=== PATIENT | female | born 1965 | race African-American/Black ===

== ENCOUNTER 2017-11-02 10:12 | Inpatient (IN) | payer OTHER ==
[~2017-11-02] VITALS: Ht 162.6 cm; Wt 84.5 kg
[~2017-11-02 10:12] MED LIST: AMLO10TA2 PO; AMLO5TAB2 PO; AMOX500C PO; ATEN25TA PO; ATEN50TA PO; BUDE10.2 IH; CHOL10003 PO; LISI1TAB5 PO; OMEG500C3 PO; POTA20TA12 PO; VITA400C36 PO
[2017-11-02] MEDS ORDERED: IV NORMAL SALINE 1000ML BAG 1,000 ML IV SCH (10:33)
--- NOTE | 2017-11-02 10:36 | EKG ---
[facility] [address] [place] [address] Test Date: 2017-11-02 Test Time: 10:20:48 Pat Name: ANATOLY HENSLEY Department: Room: Gender: F Dance Teacher: : 1965 Requested By: DAYTON PARR Order Number: [id number] Reading MD: Janak Poe MD Measurements Intervals [place] Rate: 63 P: 47 PA: 200 QRS: 23 QRSD: 80 T: 7 QT: 398 QTc: 410 Interpretive Statements SINUS RHYTHM Electronically Signed On 11-07-2017 14:32:39 [employer] TENDER by Janak Poe MD
[2017-11-02 10:45] LABS: BASO % 1 % (0-3); EOS % 1 % (0-3); HEMATOCRIT 37.1 % (36.0-47.0); HEMOGLOBIN 12.1 g/dL (12.0-15.5); LYMPH # 1.9 x10^3/uL (1.0-4.8); LYMPH % 25 % (24-48); MEAN CORPUSCULAR HEMOGLOBIN 28 pg (25-35); MEAN CORPUSCULAR HGB CONC 33 g/dL (31-37); MEAN CORPUSCULAR VOLUME 85 fL (79-100); MONO % 7 % (0-9); NEUT % 66 % (31-73); PLATELET COUNT 249 x10^3/uL (140-400); RED BLOOD COUNT 4.35 x10^6/uL (3.50-5.40); RED CELL DISTRIBUTION WIDTH 14.2 % (11.5-14.5); WHITE BLOOD COUNT 7.5 x10^3/uL (4.0-11.0)
[2017-11-02] MEDS ORDERED: ASPIRIN CHEWABLE 81 MG TABLET. PO ONE (10:45)
[2017-11-02] MEDS ORDERED: 0.9 % SODIUM CHLORIDE 10 ML DISP.SYRIN. IV PRN (10:45)
[2017-11-02 10:58] LABS: BILIRUBIN,URINE NEGATIVE (NEG); GLUCOSE,URINE NEGATIVE (NEG); NITRITE,URINE NEGATIVE (NEG); PH,URINE 7.5; PROTEIN,URINE NEGATIVE (NEG-TRACE); UROBILINOGEN,URINE 0.2 mg/dL (0.2 mg/dL)
[2017-11-02 11:05] LABS: ALBUMIN 3.6 g/dL (3.4-5.0); CALCIUM 9.2 mg/dL (8.5-10.1); CREATININE 0.8 mg/dL (0.6-1.0); DIRECT BILIRUBIN 0.1 mg/dL (0.0-0.2); GFR 90.8; TOTAL BILIRUBIN 0.4 mg/dL (0.2-1.0); TOTAL PROTEIN 7.7 g/dL (6.4-8.2)
[2017-11-02 11:11] LABS: POTASSIUM 2.9 mmol/L (3.5-5.1)
[2017-11-02 11:13] LABS: CKMB MASS < 0.5 ng/mL (0.0-3.6); CREATINE KINASE 73 U/L (26-192)
[2017-11-02 11:13] LABS: BACTERIA,URINE MODERATE /HPF (0-FEW); RBC,URINE 0 /HPF (0-2); SQUAMOUS EPITHELIAL CELL,UR MANY /LPF; WBC,URINE OCC /HPF (0-4)
--- NOTE | 2017-11-02 11:17 | RAD ---
Portable chest, 11/02/2017: History: Chest pain Comparison is made to a study from 11/29/2004. The heart is at the upper limits of normal in size. The pulmonary vascularity is normal. There are mild bibasilar linear opacities suggesting atelectasis and/or scarring. No pleural fluid is evident. IMPRESSION: Mild bibasilar linear atelectasis and/or scarring.
[2017-11-02] MEDS ORDERED: fentaNYL PF VIAL 100 MCG/2 ML VIAL IV PRN (11:30)
[2017-11-02] MEDS ORDERED: ONDANSETRON PF 4 MG/2 ML VIAL. IV PRN (11:30)
[2017-11-02] MEDS: POTASSIUM CITRATE 10 MEQ TABLET.ER PO SCH ×2 (11:42→19:50)
--- NOTE | 2017-11-02 11:43 | PHYS DOC ---
Past Medical History Past Medical History: Hypertension Past Surgical History: Cholecystectomy Alcohol Use: Occasionally Drug Use: None Adult General Chief Complaint Chief Complaint: CHEST PAIN [facility] HPI Patient is a pleasant 52-year-old -Cypriot female with history of hypertension presents with chest pain that awoke her from sleep at about 3 clock this morning. Patient was in her normal state of health when she was sleeping at night and awoke with chest pressure reading from her left breast to Center for chest has been waxing and waning. She noted that the chest pain is worse with exertion and deep breaths. She is not had any like this in the past. She denies any swelling her lower legs or weight gain, denies any cough, URI symptoms or problems with wheezing. Patient denies any travel outside the country or antibiotic use. The pain is described as a pressure with no radiation to the jaw, shoulder, arm or back. She denies any trauma or night sweats. Patient's pain was not improved with accommodation of baking soda and vinegar. She felt that she could burp she would feel better she also describes decreased exercise tolerance and possible sleep apnea. 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 She is looking for other ways to make money and this is causing increased stress in her household. Patient denies any significant family history patient's chest pain at this time is a moderate 6 of 10 Differential diagnosis for chest pain: Pericarditis, myocarditis, endocarditis, pneumothorax, pneumonia, aortic dissection, esophageal spasm, esophagitis, peptic ulcer disease, acute coronary syndrome, mediastinitis, Boerhaave syndrome , musculoskeletal chest wall pain, costochondritis, intercostal strain, rib fracture, pulmonary contusion, pneumonitis, pleural effusion, pericardial effusion, pericardial tamponode, and pleurisy. Review of Systems Review of Systems Constitutional: Denies fever or chills [] Eyes: Denies change in visual acuity, redness, or eye pain [] HENT: Denies nasal congestion or sore throat [] Respiratory: Denies cough patient does have some shortness of breath with her symptoms. Cardiovascular: No additional information not addressed in HPI [] GI: Denies abdominal pain, nausea, vomiting, bloody stools or diarrhea [patient does describe some intermittent constipation for which she uses MiraLAX to treat her symptoms.] : Denies dysuria or hematuria [] Musculoskeletal: Denies back pain or joint pain [] Integument: Denies rash or skin lesions [] Neurologic: Denies headache, focal weakness or sensory changes patient did have a slight episode of paresthesias and numbness to the fourth toe on the right foot several days ago that resolved [] Endocrine: Denies polyuria or polydipsia [] All other systems were reviewed and found to be within normal limits, except as documented in this note. Current Medications Current Medications Current Medications Medications (Trade) Dose Ordered Sig/Edi Start Time Stop Time Status Last Admin Dose Admin Aspirin (Children'S Aspirin) 324 mg 1X ONCE 11/02/17 10:45 11/02/17 10:46 DC Sodium Chloride (Normal Saline Flush) 10 ml QSHIFT PRN 11/02/17 10:45 Allergies Allergies Allergies Coded Allergies Type Severity Reaction Last Updated Verified No Known Drug Allergies 02/12/15 No Physical Exam Physical Exam Upon arrival vital signs recorded on this patient's chart demonstrate hypertension. No tachycardia and no tachypnea nor hypoxia Constitutional: Well developed, well nourished, no acute distress, non-toxic appearance. Patient is obese[] HENT: Normocephalic, atraumatic, bilateral external ears normal, oropharynx moist, no oral exudates, nose normal. [] Eyes: PERRLA, EOMI, conjunctiva normal, no discharge. [] Neck: Normal range of motion, no tenderness, supple, no stridor. [] Cardiovascular:Heart rate regular rhythm, no murmur patient has no clear chest wall tenderness to palpation. [] Lungs & Thorax: Bilateral breath sounds clear to auscultation she has no wheezes rhonchi rales or crackles. [] Abdomen: Bowel sounds normal, soft, no tenderness, no masses, no pulsatile masses. [] Skin: Warm, dry, no erythema, no rash. [] Extremities: No tenderness, no cyanosis, no clubbing, ROM intact, no edema. [] Neurologic: Alert and oriented X 3, normal motor function, normal sensory function, no focal deficits noted. [] Psychologic: Affect normal, judgement normal, mood normal. [] Current Patient Data Vital Signs Vital Signs Date Time Temp Pulse Resp B/P (MAP) Pulse Ox O2 Delivery O2 Flow Rate FiO2 11/02/17 10:15 98.3 61 20 163/73 (103) 96 Room Air 98.3 Lab Values Laboratory Tests Test 11/02/17 10:25 11/02/17 10:43 White Blood Count 7.5 x10^3/uL (4.0-11.0) Red Blood Count 4.35 x10^6/uL (3.50-5.40) Hemoglobin 12.1 g/dL (12.0-15.5) Hematocrit 37.1 % (36.0-47.0) Mean Corpuscular Volume 85 fL (79-100) Mean Corpuscular Hemoglobin 28 pg (25-35) Mean Corpuscular Hemoglobin Concent 33 g/dL (31-37) Red Cell Distribution Width 14.2 % (11.5-14.5) Platelet Count 249 x10^3/uL (140-400) Neutrophils (%) (Auto) 66 % (31-73) Lymphocytes (%) (Auto) 25 % (24-48) Monocytes (%) (Auto) 7 % (0-9) Eosinophils (%) (Auto) 1 % (0-3) Basophils (%) (Auto) 1 % (0-3) Neutrophils # (Auto) 5.0 x10^3uL (1.8-7.7) Lymphocytes # (Auto) 1.9 x10^3/uL (1.0-4.8) Monocytes # (Auto) 0.5 x10^3/uL (0.0-1.1) Eosinophils # (Auto) 0.1 x10^3/uL (0.0-0.7) Basophils # (Auto) 0.0 x10^3/uL (0.0-0.2) D-Dimer (Tyra) 0.30 ug/mlFEU (0.00-0.50) Sodium Level 141 mmol/L (136-145) Potassium Level 2.9 mmol/L (3.5-5.1) *L Chloride Level 102 mmol/L (98-107) Carbon Dioxide Level 33 mmol/L (21-32) H Anion Gap 6 (6-14) Blood Urea Nitrogen 10 mg/dL (7-20) Creatinine 0.8 mg/dL (0.6-1.0) Estimated GFR (Cockcroft-Gault) 90.8 Glucose Level 97 mg/dL (70-99) Calcium Level 9.2 mg/dL (8.5-10.1) Magnesium Level 2.0 mg/dL (1.8-2.4) Total Bilirubin 0.4 mg/dL (0.2-1.0) Direct Bilirubin 0.1 mg/dL (0.0-0.2) Aspartate Amino Transferase (AST) 17 U/L (15-37) Alanine Aminotransferase (ALT) 19 U/L (14-59) Alkaline Phosphatase 73 U/L (46-116) Creatine Kinase 73 U/L (26-192) Creatine Kinase MB (Mass) < 0.5 ng/mL (0.0-3.6) Creatine Kinase MB Relative Index % (0-4) Troponin I Quantitative < 0.017 ng/mL (0.000-0.055) VH-Gpj-X-Type Natriuretic Peptide 112 pg/mL (0-124) Total Protein 7.7 g/dL (6.4-8.2) Albumin 3.6 g/dL (3.4-5.0) Lipase 99 U/L (73-393) Urine Collection Type Unknown Urine Color Yellow Urine Clarity Clear Urine pH 7.5 Urine Specific [place] 1.010 Urine Protein Negative mg/dL (NEG-TRACE) Urine Glucose (UA) Negative mg/dL (NEG) Urine Ketones (Stick) Negative mg/dL (NEG) Urine Blood Negative (NEG) Urine Nitrite Negative (NEG) Urine Bilirubin Negative (NEG) Urine Urobilinogen Dipstick 0.2 mg/dL (0.2 mg/dL) Urine Leukocyte Esterase Trace (NEG) Urine RBC 0 /HPF (0-2) Urine WBC Occ /HPF (0-4) Urine Squamous Epithelial Cells Many /LPF Urine Bacteria Moderate /HPF (0-FEW) Laboratory Tests 11/02/17 10:25 Laboratory Tests 11/02/17 10:25 EKG EKG []Initially her EKG upon arrival demonstrates a heart rate of 63, is been read by me time on EKG was 10:20 AM 11/02/2017 the EKG demonstrated P wave there were QRS this is normal sinus rhythm with a AZ interval 200 which is first- degree AV block ASIS QRS width is 80 which is normal, QTc is 410 which is normal. Besides having a first-degree AV block patient's EKG is otherwise normal Radiology/Procedures Radiology/Procedures [] [facility] [address] [place] [address] IMAGING REPORT Signed PATIENT: ANATOLY HENSLEY ACCOUNT: [id number] : 1965 LOCATION: ER AGE: 52 SEX: F EXAM STATUS: REG ER ORD. PHYSICIAN: DAYTON PARR MD REASON: chest pain PROCEDURE: PORTABLE CHEST 1V Portable chest, 11/02/2017: History: Chest pain Comparison is made to a study from 11/29/2004. The heart is at the upper limits of normal in size. The pulmonary vascularity is normal. There are mild bibasilar linear opacities suggesting atelectasis and/or scarring. No pleural fluid is evident. IMPRESSION: Mild bibasilar linear atelectasis and/or scarring. DICTATED and SIGNED BY: JULIAN BARAHONA MD DATE: 11/02/17 111 CC: DAYTON PARR MD; BINTA QUINTANA MD ~ Course & Med Decision Making Course & Med Decision Making Pertinent Labs and Imaging studies reviewed. (See chart for details) []She presented with chest pain of unclear etiology upon arrival. It only began about 3-6 hours prior to arrival and she's never had this symptom before. There is some remote discussion by her primary care doctor that she needs to be evaluated for possible sleep apnea and possibly set up for a stress test. She does also admit during the history that she is been going through perimenopausal symptoms. Initially her EKG upon arrival demonstrates a heart rate of 63, is been read by me time on EKG was 10:20 AM 11/02/2017 the EKG demonstrated P wave there were QRS this is normal sinus rhythm with a AZ interval 200 which is first-degree AV block ASIS QRS width is 80 which is normal , QTc is 410 which is normal. Besides having a first-degree AV block patient's EKG is otherwise normal Differential diagnosis for chest pain: Pericarditis, myocarditis, endocarditis, pneumothorax, pneumonia, aortic dissection, esophageal spasm, esophagitis, peptic ulcer disease, acute coronary syndrome, mediastinitis, Boerhaave syndrome , musculoskeletal chest wall pain, costochondritis, intercostal strain, rib fracture, pulmonary contusion, pneumonitis, pleural effusion, pericardial effusion, pericardial tamponode, and pleurisy. Was considered upon the patient' s arrival given her new symptoms despite having a negative EKG, negative troponin, negative d-dimer and negative BNP patient would benefit from a very low close follow-up if not admission to the hospital. History: Based on patient's heart score of age and risk factors she has a score of 2 based on her lack of follow-up we discussed admission to complete a stress test and sleep apnea study given her concern. Highly suspicious 2 points moderately suspicious 1. slightly suspicious 0 point EKG: ST segment depression 2. nonspecific repolarization disturbance 1. normal 0 point Age: Greater than 65 2 points, 65-45 1., less than 45 years old 0 points Risk factors:> 3 risk factors 2 points, 1-2 risk factors one point, no risk factors 0 point Troponin: > 2 times normal 2 points, 1-2 times normal 1., normal limits 0 point Total score: Score % pts MACE/n MACE Policy 0-3 32% 1.9% 0.05% Discharge 4-6 51% 413/3136 13% 1.3% Observation Risk management 7-10 17% 518/1045 50% 2.8% Observation Treatment, [facility] [employer] Supervisor note: [facility]. [facility] [employer] Supervisor called at of the service primary care doctor called at approximately 11:30 AM Consult called back at Discussed the case I presented and they agreed with admission. Time of acceptance 11:31 AM Dragon Disclaimer Dragon Disclaimer This electronic medical record was generated, in whole or in part, using a voice recognition dictation system. Departure Departure Impression: Primary Impression: Chest pain Additional Impression: Dyspnea Disposition: 09 ADMITTED INPATIENT Admitting Physician: Binta Quintana Condition: GUARDED Referrals: BINTA QUINTANA MD (PCP) Problem Qualifiers DAYTON PARR MD Nov 02, 2017 11:43
[2017-11-02 13:27] VITALS: BP 139/68
[2017-11-02 13:28] VITALS: BP 139/68
[2017-11-02] MEDS: IV NORMAL SALINE 1000ML BAG 1,000 ML IV SCH ×2 (13:30→19:50)
[2017-11-02] MEDS ORDERED: POTASSIUM CHLORIDE 20 MEQ TABLET.ER. PO SCH (14:00)
[2017-11-02] MEDS: amLODIPine BESYLATE 5 MG TABLET PO SCH (14:00)
[2017-11-02] MEDS ORDERED: ATENOLOL 50 MG TABLET. PO SCH ×2 (14:00→21:00)
[2017-11-02] MEDS: LISINOPRIL 20 MG TABLET PO SCH (14:00)
[2017-11-02 14:40] VITALS: BP 142/49
[2017-11-02] MEDS ORDERED: POTASSIUM CHLORIDE 20 MEQ TABLET.ER. PO ONE (15:00)
--- NOTE | 2017-11-02 15:09 | PDOC2 ---
CARDIAC CONSULT DATE OF CONSULT Date of Consult DATE: 11/02/17 TIME: 14:47 REASON FOR CONSULT Reason for Consult: Chest pain REFERRING PHYSICIAN Referring Physician: Letty SOURCE Source: Chart review, Patient HISTORY OF PRESENT ILLNESS HISTORY OF PRESENT ILLNESS This is a pleasant 52 yo female admitted for complains of chest pain. Pt reports that she has been coughing more often in the middle of the night. Also positive for PND, and daytime sleepiness even doing it at work. She has been noted with gaps between respiration with her last sleepo study about 10 yrs ago. Reports no exertional CP, BLACKMON, palpitations. No n/v or diarrhea, recent long distance travel, heavy lifting, or falls. She woke up this morning and felt lower sternal pressure that went up and hurts more with deep breath. Much better currently. No sensation of heartburn. No associated nausea, diaphoresis , nor SOA at that time. She took vinegar and soda to help her belch but this did not relieve her symptom. She is currently menopausal and not on any HRT. PAST MEDICAL HISTORY Cardiovascular: HTN Pulmonary: Asthma GI: Diverticulosis Musculoskeletal: Osteoarthritis (left shoulder) Rheumatologic: No pertinent hx Infectious disease: No pertinent hx ENT: No pertinent hx Renal/: No pertinent hx Endocrine: No pertinent hx Dermatology: No pertinent hx PAST SURGICAL HISTORY Past Surgical History: Cholecystectomy FAMILY HISTORY Family History: Other (aneurysm mother at 70s) SOCIAL HISTORY Smoke: No ALCOHOL: none Drugs: None Lives: Alone CURRENT MEDICATIONS CURRENT MEDICATIONS Current Medications Medications (Trade) Dose Ordered Sig/Edi Route PRN Reason Start Time Stop Time Status Last Admin Dose Admin Sodium Chloride 1,000 ml @ 1,000 mls/hr Q1H IV 11/02/17 10:33 11/02/17 11:32 DC 11/02/17 10:42 Sodium Chloride 1,000 ml @ 125 mls/hr Q8H IV 11/02/17 11:30 11/03/17 11:29 11/02/17 13:30 Potassium Citrate (Urocit-K) 10 meq BID PO 11/02/17 12:00 11/02/17 11:42 ALLERGIES ALLERGIES: Coded Allergies: No Known Drug Allergies (Unverified , 02/12/15) ROS Review of System 14 point ROS evaluated with pertinent positives noted per HPI PHYSICAL EXAM General: Alert, Oriented X3, Cooperative, No acute distress HEENT: Atraumatic, Mucous membr. moist/pink Lungs: Clear to auscultation, Normal air movement Heart: Regular rate (SR), Normal S1, Normal S2, No murmurs Abdomen: Soft, No tenderness Extremities: No cyanosis, No edema Skin: No breakdown, No significant lesion Neuro: Normal speech, Sensation intact Psych/Mental Status: Mental status NL, Mood NL MUSCULOSKELETAL: Osteoarthritic changes both hands VITALS VITALS Vital Signs Date Time Temp Pulse Resp B/P (MAP) Pulse Ox O2 Delivery O2 Flow Rate FiO2 11/02/17 14:40 97.6 66 18 142/49 (80) 98 Room Air 97.6 LABS Lab: Laboratory Tests Test 11/02/17 10:25 11/02/17 10:43 White Blood Count 7.5 x10^3/uL (4.0-11.0) Red Blood Count 4.35 x10^6/uL (3.50-5.40) Hemoglobin 12.1 g/dL (12.0-15.5) Hematocrit 37.1 % (36.0-47.0) Mean Corpuscular Volume 85 fL (79-100) Mean Corpuscular Hemoglobin 28 pg (25-35) Mean Corpuscular Hemoglobin Concent 33 g/dL (31-37) Red Cell Distribution Width 14.2 % (11.5-14.5) Platelet Count 249 x10^3/uL (140-400) Neutrophils (%) (Auto) 66 % (31-73) Lymphocytes (%) (Auto) 25 % (24-48) Monocytes (%) (Auto) 7 % (0-9) Eosinophils (%) (Auto) 1 % (0-3) Basophils (%) (Auto) 1 % (0-3) Neutrophils # (Auto) 5.0 x10^3uL (1.8-7.7) Lymphocytes # (Auto) 1.9 x10^3/uL (1.0-4.8) Monocytes # (Auto) 0.5 x10^3/uL (0.0-1.1) Eosinophils # (Auto) 0.1 x10^3/uL (0.0-0.7) Basophils # (Auto) 0.0 x10^3/uL (0.0-0.2) D-Dimer (Tyra) 0.30 ug/mlFEU (0.00-0.50) Sodium Level 141 mmol/L (136-145) Potassium Level 2.9 mmol/L (3.5-5.1) Chloride Level 102 mmol/L (98-107) Carbon Dioxide Level 33 mmol/L (21-32) Anion Gap 6 (6-14) Blood Urea Nitrogen 10 mg/dL (7-20) Creatinine 0.8 mg/dL (0.6-1.0) Estimated GFR (Cockcroft-Gault) 90.8 Glucose Level 97 mg/dL (70-99) Calcium Level 9.2 mg/dL (8.5-10.1) Magnesium Level 2.0 mg/dL (1.8-2.4) Total Bilirubin 0.4 mg/dL (0.2-1.0) Direct Bilirubin 0.1 mg/dL (0.0-0.2) Aspartate Amino Transf (AST/SGOT) 17 U/L (15-37) Alanine Aminotransferase (ALT/SGPT) 19 U/L (14-59) Alkaline Phosphatase 73 U/L (46-116) Creatine Kinase 73 U/L (26-192) Creatine Kinase MB (Mass) < 0.5 ng/mL (0.0-3.6) Creatine Kinase MB Relative Index % (0-4) Troponin I Quantitative < 0.017 ng/mL (0.000-0.055) ZV-Irj-A-Type Natriuretic Peptide 112 pg/mL (0-124) Total Protein 7.7 g/dL (6.4-8.2) Albumin 3.6 g/dL (3.4-5.0) Lipase 99 U/L (73-393) Thyroid Stimulating Hormone (TSH) 1.110 uIU/mL (0.358-3.74) Urine Collection Type Unknown Urine Color Yellow Urine Clarity Clear Urine pH 7.5 Urine Specific [place] 1.010 Urine Protein Negative mg/dL (NEG-TRACE) Urine Glucose (UA) Negative mg/dL (NEG) Urine Ketones (Stick) Negative mg/dL (NEG) Urine Blood Negative (NEG) Urine Nitrite Negative (NEG) Urine Bilirubin Negative (NEG) Urine Urobilinogen Dipstick 0.2 mg/dL (0.2 mg/dL) Urine Leukocyte Esterase Trace (NEG) Urine RBC 0 /HPF (0-2) Urine WBC Occ /HPF (0-4) Urine Squamous Epithelial Cells Many /LPF Urine Bacteria Moderate /HPF (0-FEW) ASSESSMENT/PLAN ASSESSMENT/PLAN 1. Atypical chest pain: suspect GI 2. HTN: controlled 3. ISA: will need outpt sleep study 4. Hypokalemia Recommendations 1. Continue home BP meds 2. Lipid panel. Stress echo tomorrow. 3. Start on PPI. Ashnati Leonard Problems: MELONIE RODRIGUEZ APRN Nov 02, 2017 15:09
[2017-11-02 15:28] LABS: CHOLESTEROL/HDL RATIO 2.8
[2017-11-02] MEDS: PANTOPRAZOLE 40 MG TABLET.DR. PO SCH (16:44)
[2017-11-02 19:15] VITALS: BP 152/71
[2017-11-02 23:15] VITALS: BP 144/74
[2017-11-03 03:15] VITALS: BP 133/63
[2017-11-03] MEDS: IV NORMAL SALINE 1000ML BAG 1,000 ML IV SCH (04:02)
[2017-11-03] MEDS: PANTOPRAZOLE 40 MG TABLET.DR. PO SCH (05:29)
[2017-11-03 06:05] LABS: CALCIUM 9.1 mg/dL (8.5-10.1); CREATININE 0.7 mg/dL (0.6-1.0); GFR 105.9; MAGNESIUM 2.1 mg/dL (1.8-2.4); POTASSIUM 3.1 mmol/L (3.5-5.1)
[2017-11-03 07:00] VITALS: BP 117/66
--- NOTE | 2017-11-03 09:18 | PDOC1 ---
History and Physical Date of Admission Date of Admission 10/03/17 Identification/Chief Complaint Chief Complaint chest pain Problems: Source Source: Chart review, Patient History of Present Illness History of Present Illness Patient is a pleasant 52-year-old -British female with history of hypertension presents with chest pain that awoke her from sleep at about 3 clock the morning of presentation. Patient was in her normal state of health when she was sleeping at night and awoke with chest pressure radiating from her left breast to Center for chest has been waxing and waning and increase with deep breathing. She noted that the chest pain is worse with exertion and deep breaths. She has not had any like this in the past. She denies any swelling her lower legs or weight gain, denies any cough, URI symptoms or problems with wheezing. Patient denies any travel outside the country or antibiotic use. The pain is described as a pressure and sharp with deep breathe . She denies any trauma or night sweats. Patient's pain was not improved with accommodation of baking soda and vinegar. She felt that she could burp she would feel better she also describes decreased exercise tolerance and possible sleep apnea. 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 She is looking for other ways to make money and this is causing increased stress in her household. Patient denies any significant family history Past Medical History Cardiovascular: HTN Pulmonary: Asthma GI: Diverticulosis Heme/Onc: Anemia NOS Hepatobiliary: No pertinent hx Psych: No pertinent hx Rheumatologic: No pertinent hx Infectious disease: No pertinent hx ENT: No pertinent hx Renal/: No pertinent hx Endocrine: No pertinent hx Dermatology: No pertinent hx Past Surgical History Past Surgical History: Cholecystectomy Family History Family History: Hypertension, Other (aneurysm mother at 70s) Social History Smoke: No ALCOHOL: none Drugs: None Current Problem List Problem List Problems Medical Problems: (1) Chest pain Status: Acute (2) Dyspnea Status: Acute Current Medications Current Medications Current Medications Medications (Trade) Dose Ordered Sig/Edi Start Time Stop Time Status Last Admin Dose Admin Amlodipine Besylate (Norvasc) 5 mg DAILY 11/02/17 14:00 Aspirin (Children'S Aspirin) 324 mg 1X ONCE 11/02/17 10:45 11/02/17 10:46 DC Atenolol (Tenormin) 50 mg QHS 12/14/17 21:00 11/02/17 19:51 50 MG Fentanyl Citrate (Fentanyl 2ml Vial) 50 mcg PRN Q1HR PRN 11/02/17 11:30 11/03/17 11:29 Lisinopril (Prinivil) 20 mg DAILY 11/02/17 14:00 Ondansetron HCl (Zofran) 4 mg PRN Q8HRS PRN 11/02/17 11:30 11/03/17 11:29 Pantoprazole Sodium (Protonix) 40 mg DAILYAC 11/02/17 16:30 11/02/17 16:44 40 MG Potassium Chloride (Klor-Con) 40 meq 1X ONCE 11/02/17 15:00 11/02/17 15:06 DC 11/02/17 16:44 40 MEQ Potassium Citrate (Urocit-K) 10 meq BID 11/02/17 12:00 11/02/17 19:50 10 MEQ Sodium Chloride 1,000 ml @ 125 mls/hr Q8H 11/02/17 11:30 11/03/17 11:29 11/03/17 04:02 125 MLS/HR Sodium Chloride (Normal Saline Flush) 10 ml QSHIFT PRN 11/02/17 10:45 Allergies Allergies Allergies Coded Allergies Type Severity Reaction Last Updated Verified No Known Drug Allergies 02/12/15 No ROS Review of System CONSTITUTIONAL: No fever or chills EYES: No recent changes SKIN: No rash or itching CARDIOVASCULAR: see HPI, NO syncope, palpitations, or edema RESPIRATORY: No SOB or cough GASTROINTESTINAL: No nausea, vomiting or abdominal pain NEUROLOGICAL: No headaches or weakness ENDOCRINE: No cold or heat intolerance GENITOURINARY: No urgency or frequency of urination MUSCULOSKELETAL: No back pain or joint pain LYMPHATICS: No enlarged lymph nodes PSYCHIATRIC: + anxiety and ma be depression Physical Exam Physical Exam GEN.: No apparent distress. Alert and oriented. HEENT: Head is normocephalic, atraumatic NECK: Supple. LUNGS: Clear to auscultation. HEART: RRR, S1, S2 present. Peripheral pulses intact ABDOMEN: Soft, nontender. Positive bowel sounds. EXTREMITIES: Without any cyanosis. NEUROLOGIC: Normal speech, normal tone PSYCHIATRIC: Normal affect, normal mood. SKIN: No ulcerations Vitals Vitals Vital Signs Date Time Temp Pulse Resp B/P (MAP) Pulse Ox O2 Delivery O2 Flow Rate FiO2 11/03/17 08:00 Room Air 11/03/17 07:00 98.1 71 16 117/66 (83) 97 98.1 Labs Labs Laboratory Tests Test 11/02/17 10:25 11/02/17 10:43 11/02/17 17:45 11/02/17 23:20 White Blood Count 7.5 x10^3/uL (4.0-11.0) Red Blood Count 4.35 x10^6/uL (3.50-5.40) Hemoglobin 12.1 g/dL (12.0-15.5) Hematocrit 37.1 % (36.0-47.0) Mean Corpuscular Volume 85 fL (79-100) Mean Corpuscular Hemoglobin 28 pg (25-35) Mean Corpuscular Hemoglobin Concent 33 g/dL (31-37) Red Cell Distribution Width 14.2 % (11.5-14.5) Platelet Count 249 x10^3/uL (140-400) Neutrophils (%) (Auto) 66 % (31-73) Lymphocytes (%) (Auto) 25 % (24-48) Monocytes (%) (Auto) 7 % (0-9) Eosinophils (%) (Auto) 1 % (0-3) Basophils (%) (Auto) 1 % (0-3) Neutrophils # (Auto) 5.0 x10^3uL (1.8-7.7) Lymphocytes # (Auto) 1.9 x10^3/uL (1.0-4.8) Monocytes # (Auto) 0.5 x10^3/uL (0.0-1.1) Eosinophils # (Auto) 0.1 x10^3/uL (0.0-0.7) Basophils # (Auto) 0.0 x10^3/uL (0.0-0.2) D-Dimer (Tyra) 0.30 ug/mlFEU (0.00-0.50) Sodium Level 141 mmol/L (136-145) Potassium Level 2.9 mmol/L (3.5-5.1) Chloride Level 102 mmol/L (98-107) Carbon Dioxide Level 33 mmol/L (21-32) Anion Gap 6 (6-14) Blood Urea Nitrogen 10 mg/dL (7-20) Creatinine 0.8 mg/dL (0.6-1.0) Estimated GFR (Cockcroft-Gault) 90.8 Glucose Level 97 mg/dL (70-99) Calcium Level 9.2 mg/dL (8.5-10.1) Magnesium Level 2.0 mg/dL (1.8-2.4) Total Bilirubin 0.4 mg/dL (0.2-1.0) Direct Bilirubin 0.1 mg/dL (0.0-0.2) Aspartate Amino Transf (AST/SGOT) 17 U/L (15-37) Alanine Aminotransferase (ALT/SGPT) 19 U/L (14-59) Alkaline Phosphatase 73 U/L (46-116) Creatine Kinase 73 U/L (26-192) Creatine Kinase MB (Mass) < 0.5 ng/mL (0.0-3.6) Creatine Kinase MB Relative Index % (0-4) Troponin I Quantitative < 0.017 ng/mL (0.000-0.055) < 0.017 ng/mL (0.000-0.055) < 0.017 ng/mL (0.000-0.055) KX-Ckw-N-Type Natriuretic Peptide 112 pg/mL (0-124) Total Protein 7.7 g/dL (6.4-8.2) Albumin 3.6 g/dL (3.4-5.0) Triglycerides Level 57 mg/dL (0-150) Cholesterol Level 223 mg/dL (0-200) LDL Cholesterol, Calculated 132 mg/dL (0-100) VLDL Cholesterol, Calculated 11 mg/dL (0-40) Non-HDL Cholesterol Calculated 143 mg/dL (0-129) HDL Cholesterol 80 mg/dL (40-60) Cholesterol/HDL Ratio 2.8 Lipase 99 U/L (73-393) Thyroid Stimulating Hormone (TSH) 1.110 uIU/mL (0.358-3.74) Urine Collection Type Unknown Urine Color Yellow Urine Clarity Clear Urine pH 7.5 Urine Specific [place] 1.010 Urine Protein Negative mg/dL (NEG-TRACE) Urine Glucose (UA) Negative mg/dL (NEG) Urine Ketones (Stick) Negative mg/dL (NEG) Urine Blood Negative (NEG) Urine Nitrite Negative (NEG) Urine Bilirubin Negative (NEG) Urine Urobilinogen Dipstick 0.2 mg/dL (0.2 mg/dL) Urine Leukocyte Esterase Trace (NEG) Urine RBC 0 /HPF (0-2) Urine WBC Occ /HPF (0-4) Urine Squamous Epithelial Cells Many /LPF Urine Bacteria Moderate /HPF (0-FEW) Test 11/03/17 05:15 Sodium Level 142 mmol/L (136-145) Potassium Level 3.1 mmol/L (3.5-5.1) Chloride Level 102 mmol/L (98-107) Carbon Dioxide Level 30 mmol/L (21-32) Anion Gap 10 (6-14) Blood Urea Nitrogen 8 mg/dL (7-20) Creatinine 0.7 mg/dL (0.6-1.0) Estimated GFR (Cockcroft-Gault) 105.9 Glucose Level 51 mg/dL (70-99) Calcium Level 9.1 mg/dL (8.5-10.1) Magnesium Level 2.1 mg/dL (1.8-2.4) Laboratory Tests Test 11/02/17 10:25 11/02/17 10:43 11/02/17 17:45 11/02/17 23:20 White Blood Count 7.5 x10^3/uL (4.0-11.0) Red Blood Count 4.35 x10^6/uL (3.50-5.40) Hemoglobin 12.1 g/dL (12.0-15.5) Hematocrit 37.1 % (36.0-47.0) Mean Corpuscular Volume 85 fL (79-100) Mean Corpuscular Hemoglobin 28 pg (25-35) Mean Corpuscular Hemoglobin Concent 33 g/dL (31-37) Red Cell Distribution Width 14.2 % (11.5-14.5) Platelet Count 249 x10^3/uL (140-400) Neutrophils (%) (Auto) 66 % (31-73) Lymphocytes (%) (Auto) 25 % (24-48) Monocytes (%) (Auto) 7 % (0-9) Eosinophils (%) (Auto) 1 % (0-3) Basophils (%) (Auto) 1 % (0-3) Neutrophils # (Auto) 5.0 x10^3uL (1.8-7.7) Lymphocytes # (Auto) 1.9 x10^3/uL (1.0-4.8) Monocytes # (Auto) 0.5 x10^3/uL (0.0-1.1) Eosinophils # (Auto) 0.1 x10^3/uL (0.0-0.7) Basophils # (Auto) 0.0 x10^3/uL (0.0-0.2) D-Dimer (Tyra) 0.30 ug/mlFEU (0.00-0.50) Sodium Level 141 mmol/L (136-145) Potassium Level 2.9 mmol/L (3.5-5.1) Chloride Level 102 mmol/L (98-107) Carbon Dioxide Level 33 mmol/L (21-32) Anion Gap 6 (6-14) Blood Urea Nitrogen 10 mg/dL (7-20) Creatinine 0.8 mg/dL (0.6-1.0) Estimated GFR (Cockcroft-Gault) 90.8 Glucose Level 97 mg/dL (70-99) Calcium Level 9.2 mg/dL (8.5-10.1) Magnesium Level 2.0 mg/dL (1.8-2.4) Total Bilirubin 0.4 mg/dL (0.2-1.0) Direct Bilirubin 0.1 mg/dL (0.0-0.2) Aspartate Amino Transf (AST/SGOT) 17 U/L (15-37) Alanine Aminotransferase (ALT/SGPT) 19 U/L (14-59) Alkaline Phosphatase 73 U/L (46-116) Creatine Kinase 73 U/L (26-192) Creatine Kinase MB (Mass) < 0.5 ng/mL (0.0-3.6) Creatine Kinase MB Relative Index % (0-4) Troponin I Quantitative < 0.017 ng/mL (0.000-0.055) < 0.017 ng/mL (0.000-0.055) < 0.017 ng/mL (0.000-0.055) AP-Vcc-C-Type Natriuretic Peptide 112 pg/mL (0-124) Total Protein 7.7 g/dL (6.4-8.2) Albumin 3.6 g/dL (3.4-5.0) Triglycerides Level 57 mg/dL (0-150) Cholesterol Level 223 mg/dL (0-200) LDL Cholesterol, Calculated 132 mg/dL (0-100) VLDL Cholesterol, Calculated 11 mg/dL (0-40) Non-HDL Cholesterol Calculated 143 mg/dL (0-129) HDL Cholesterol 80 mg/dL (40-60) Cholesterol/HDL Ratio 2.8 Lipase 99 U/L (73-393) Thyroid Stimulating Hormone (TSH) 1.110 uIU/mL (0.358-3.74) Urine Collection Type Unknown Urine Color Yellow Urine Clarity Clear Urine pH 7.5 Urine Specific [place] 1.010 Urine Protein Negative mg/dL (NEG-TRACE) Urine Glucose (UA) Negative mg/dL (NEG) Urine Ketones (Stick) Negative mg/dL (NEG) Urine Blood Negative (NEG) Urine Nitrite Negative (NEG) Urine Bilirubin Negative (NEG) Urine Urobilinogen Dipstick 0.2 mg/dL (0.2 mg/dL) Urine Leukocyte Esterase Trace (NEG) Urine RBC 0 /HPF (0-2) Urine WBC Occ /HPF (0-4) Urine Squamous Epithelial Cells Many /LPF Urine Bacteria Moderate /HPF (0-FEW) Test 11/03/17 05:15 Sodium Level 142 mmol/L (136-145) Potassium Level 3.1 mmol/L (3.5-5.1) Chloride Level 102 mmol/L (98-107) Carbon Dioxide Level 30 mmol/L (21-32) Anion Gap 10 (6-14) Blood Urea Nitrogen 8 mg/dL (7-20) Creatinine 0.7 mg/dL (0.6-1.0) Estimated GFR (Cockcroft-Gault) 105.9 Glucose Level 51 mg/dL (70-99) Calcium Level 9.1 mg/dL (8.5-10.1) Magnesium Level 2.1 mg/dL (1.8-2.4) VTE Prophylaxis Ordered VTE Prophylaxis Devices: Yes VTE Pharmacological Prophylaxi: Yes Assessment/Plan Assessment/Plan 1. Atypical chest pain: for stress test today 2- some pleuretic quality to chestpain check CTr/o PE 3. HTN: controlled 3. SIA and fatigue will need outpt sleep study I believe it is scheduled 4. Hypokalemia due to HCTZ replace and daily K+ supplement advised 5- stress anxiety and possible depression consider SSRI Dr. Suarez will see tomorrow if not discharged BINTA QUINTANA MD Nov 03, 2017 09:18
--- NOTE | 2017-11-03 09:47 | PDOC ---
CARDIO Progress Notes Date and Time Date of Service 11/03/2017 Time of Evaluation 0930 Subjective Subjective: No shortness of breath, No Palpitations, No Dizziness, Other (mid chewst pressure associated with deep breathing) Vitals Vitals Vital Signs Date Time Temp Pulse Resp B/P (MAP) Pulse Ox O2 Delivery O2 Flow Rate FiO2 11/03/17 08:00 Room Air 11/03/17 07:00 98.1 71 16 117/66 (83) 97 98.1 Weight Weight [ ] Input and Output Intake and Output Intake and Output 11/03/17 06:59 Intake Total 3265 ml Balance 3265 ml Intake Oral 1940 ml IV Total 1325 ml # Voids 2 Laboratory Labs Laboratory Tests Test 11/02/17 10:25 11/02/17 10:43 11/02/17 17:45 11/02/17 23:20 White Blood Count 7.5 x10^3/uL (4.0-11.0) Red Blood Count 4.35 x10^6/uL (3.50-5.40) Hemoglobin 12.1 g/dL (12.0-15.5) Hematocrit 37.1 % (36.0-47.0) Mean Corpuscular Volume 85 fL (79-100) Mean Corpuscular Hemoglobin 28 pg (25-35) Mean Corpuscular Hemoglobin Concent 33 g/dL (31-37) Red Cell Distribution Width 14.2 % (11.5-14.5) Platelet Count 249 x10^3/uL (140-400) Neutrophils (%) (Auto) 66 % (31-73) Lymphocytes (%) (Auto) 25 % (24-48) Monocytes (%) (Auto) 7 % (0-9) Eosinophils (%) (Auto) 1 % (0-3) Basophils (%) (Auto) 1 % (0-3) Neutrophils # (Auto) 5.0 x10^3uL (1.8-7.7) Lymphocytes # (Auto) 1.9 x10^3/uL (1.0-4.8) Monocytes # (Auto) 0.5 x10^3/uL (0.0-1.1) Eosinophils # (Auto) 0.1 x10^3/uL (0.0-0.7) Basophils # (Auto) 0.0 x10^3/uL (0.0-0.2) D-Dimer (Tyra) 0.30 ug/mlFEU (0.00-0.50) Sodium Level 141 mmol/L (136-145) Potassium Level 2.9 mmol/L (3.5-5.1) Chloride Level 102 mmol/L (98-107) Carbon Dioxide Level 33 mmol/L (21-32) Anion Gap 6 (6-14) Blood Urea Nitrogen 10 mg/dL (7-20) Creatinine 0.8 mg/dL (0.6-1.0) Estimated GFR (Cockcroft-Gault) 90.8 Glucose Level 97 mg/dL (70-99) Calcium Level 9.2 mg/dL (8.5-10.1) Magnesium Level 2.0 mg/dL (1.8-2.4) Total Bilirubin 0.4 mg/dL (0.2-1.0) Direct Bilirubin 0.1 mg/dL (0.0-0.2) Aspartate Amino Transf (AST/SGOT) 17 U/L (15-37) Alanine Aminotransferase (ALT/SGPT) 19 U/L (14-59) Alkaline Phosphatase 73 U/L (46-116) Creatine Kinase 73 U/L (26-192) Creatine Kinase MB (Mass) < 0.5 ng/mL (0.0-3.6) Creatine Kinase MB Relative Index % (0-4) Troponin I Quantitative < 0.017 ng/mL (0.000-0.055) < 0.017 ng/mL (0.000-0.055) < 0.017 ng/mL (0.000-0.055) GJ-Gnt-E-Type Natriuretic Peptide 112 pg/mL (0-124) Total Protein 7.7 g/dL (6.4-8.2) Albumin 3.6 g/dL (3.4-5.0) Triglycerides Level 57 mg/dL (0-150) Cholesterol Level 223 mg/dL (0-200) LDL Cholesterol, Calculated 132 mg/dL (0-100) VLDL Cholesterol, Calculated 11 mg/dL (0-40) Non-HDL Cholesterol Calculated 143 mg/dL (0-129) HDL Cholesterol 80 mg/dL (40-60) Cholesterol/HDL Ratio 2.8 Lipase 99 U/L (73-393) Thyroid Stimulating Hormone (TSH) 1.110 uIU/mL (0.358-3.74) Urine Collection Type Unknown Urine Color Yellow Urine Clarity Clear Urine pH 7.5 Urine Specific [place] 1.010 Urine Protein Negative mg/dL (NEG-TRACE) Urine Glucose (UA) Negative mg/dL (NEG) Urine Ketones (Stick) Negative mg/dL (NEG) Urine Blood Negative (NEG) Urine Nitrite Negative (NEG) Urine Bilirubin Negative (NEG) Urine Urobilinogen Dipstick 0.2 mg/dL (0.2 mg/dL) Urine Leukocyte Esterase Trace (NEG) Urine RBC 0 /HPF (0-2) Urine WBC Occ /HPF (0-4) Urine Squamous Epithelial Cells Many /LPF Urine Bacteria Moderate /HPF (0-FEW) Test 11/03/17 05:15 Sodium Level 142 mmol/L (136-145) Potassium Level 3.1 mmol/L (3.5-5.1) Chloride Level 102 mmol/L (98-107) Carbon Dioxide Level 30 mmol/L (21-32) Anion Gap 10 (6-14) Blood Urea Nitrogen 8 mg/dL (7-20) Creatinine 0.7 mg/dL (0.6-1.0) Estimated GFR (Cockcroft-Gault) 105.9 Glucose Level 51 mg/dL (70-99) Calcium Level 9.1 mg/dL (8.5-10.1) Magnesium Level 2.1 mg/dL (1.8-2.4) Physical Exam HEENT: Neck Supple W Full Motion Chest: Symmetric LUNGS: Clear to Auscultation Heart: S1S2, RRR (SR no ectopies) Abdomen: Soft N/T Extremities: No Edema, No Calf Tenderness Neurology: alert, oriented, follow commands Assessment Assessment 1. Atypical chest pain: suspect GI 2. HTN: controlled 3. ISA: will need outpt sleep study 4. Hypokalemia 5. DLP: HDL 80 LDL 132 Recommendations 1. Continue home BP meds 2. If stress echo unremarkable then anticipate DC this afternoon per CV perspective 3. Replace K 4. PPI MELONIE RODRIGUEZ APRN Nov 03, 2017 09:47
[2017-11-03] MEDS ORDERED: IOHEXOL 300 MG/ML 100ML VIAL. IV ONE (10:00)
[2017-11-03] MEDS ORDERED: POTASSIUM CHLORIDE 20 MEQ TABLET.ER. PO ONE (10:00)
[2017-11-03] MEDS ORDERED: CONTRAST GIVEN MC PRN (10:15)
[2017-11-03] MEDS ORDERED: SERTRALINE 50 MG TABLET. PO SCH (11:00)
--- NOTE | 2017-11-03 11:44 | RAD ---
CTA of the chest. Indication: [Chest pain] Comparison study: [None available] Technique: Multidetector CT imaging of the chest was performed following the administration of intravenous contrast. Multiple reconstructions including 3-D maximum intensity projection reconstructions were created on an independent workstation and reviewed. Findings: There is no evidence of filling defect within central pulmonary arteries or other evidence of acute pulmonary embolism. There is mild cardiomegaly. No significant pericardial effusion is identified. Scattered small mediastinal lymph nodes are noted without pathologically enlarged mediastinal adenopathy. Bovine configuration of the aortic arch noted. There is no pneumothorax or pleural effusion. Multifocal linear areas of consolidation are seen basilar posterior lower lobes bilaterally. If appearance favors multifocal atelectasis. Underlying infiltrate is felt to be less likely but not completely excluded. Limited visualization of the upper abdomen demonstrates no acute abnormalities. There is a relatively well-defined hypoattenuating lesion in the left lobe of the liver consistent with small hepatic cyst. No acute osseous abnormality is identified. Impression: 1.No evidence of acute pulmonary embolism 2. Multifocal linear consolidation in the bilateral lower lobes the appearance most likely reflects focal atelectasis. Infectious infiltrate is less likely but not completely excluded. 3. Mild cardiomegaly PQRS Compliance Statement: One or more of the following individualized dose reduction techniques were utilized for this examination: 1. Automated exposure control 2. Adjustment of the mA and/or kV according to patient size 3. Use of iterative reconstruction technique
[2017-11-03] MEDS: amLODIPine BESYLATE 5 MG TABLET PO SCH (13:12)
[2017-11-03 15:00] VITALS: BP 149/76
[2017-11-03 15:22] VITALS: BP 149/76
[2017-11-03] MEDS: LISINOPRIL 20 MG TABLET PO SCH (15:22)
--- NOTE | 2017-11-03 16:48 | CARD ---
APPROVED REPORT INDICATION Chest Pain Reason : Patient complained of pain PROCEDURE The patient underwent an Exercise Stress Test using the Yogi Protocol. Blood pressure, heart rate, a nd EKG were monitored. An Echocardiogram was performed by industrial service technician in four stages in quad fashion. At peak stress four se lected images were obtained and placed side by side with resting images for comparison. STRESS ECHO FINDINGS The resting Echocardiogram showed normal left ventricular systolic contractility with an estimated Ej ection Fraction of about 55 %. The Resting Echocardiogram showed normal augmentation of myocardial wall segments using a 16 segment model. The Stress Echocardiogram showed normal augmentation of myocardial wall segments using a 16 segment m gianni. The Stress Echocardiogram left ventricular systolic contractility has an estimated Ejection Fraction of about 60%. Test Type: Exercise Stress Nurse/Tech: Kalina Pompa R.N. Test Indications: chest pain with inspiration Cardiac History and Allergies: see ehr Medications: see ehr Medical History: see ehr Resting ECG: sr Resting Heart Rate: 70 bpm Resting Blood Pressure: 142/49mmHg Pretest Chest Pain: No chest pain Nurse/Tech Notes lungs cta, heart tones regular Consent: The procedure was explained to the patient in lay terms. Informed consent was witnessed. [place] eout was entered into [employer]. History and Stress Test performed by Kalina Pompa R.N. Stress Symptoms pt reported CP that came from R shoulder into chest, worse with breathing, resolved with recovery POST EXERCISE Reason for Termination: Reached target heart rate Target HR: Yes Max HR: 145 bpm 87% of Maximum Predicted HR: 167 bpm Exercise duration: 8:02 min:sec, 3 Stage Exercise capacity: 10.1METs Max Blood Pressure: 142/49mmHg Blood Pressure response to exercise: Normal blood pressure response during stress. Arrhythmia: Yes. pt had a period of bigeminy during Stage 2 which resolved spontaneously INTERPRETATION Stress EKG Conclusion: The resting EKG showed a normal sinus rhythm with mild nonspecific ST T-wave c hanges. The stress EKG shows further mild ST segment changes that are not diagnostic for ischemia. Mild EKG changes with exertion that are not diagnostic of ischemia. Preliminary Notification Critical Value: No <Conclusion> Good exercise tolerance. Nonspecific ST segment changes with exertion that are not diagnostic of ischemia. Normal LV systolic function at rest. Normal LV systolic response to exertion. Moderately low to low risk stress echocardiogram.
[2017-11-04] MEDS ORDERED: POTASSIUM CHLORIDE 20 MEQ TABLET.ER. PO SCH (08:00)
== END 2017-11-03 18:16 | disposition home or self-care (01) | DRG 313 ==
LOC: ER 10:12 → 6 SOUTH 11:47
PROVIDERS: ADMIT Internal Medicine; ATTEND Internal Medicine
DX: R07.89 Other chest pain (principal); E78.5 Hyperlipidemia, unspecified; E87.6 Hypokalemia; F41.9 Anxiety disorder, unspecified; G47.33 Obstructive sleep apnea (adult) (pediatric); I10 Essential (primary) hypertension; J45.909 Unspecified asthma, uncomplicated; M19.012 Primary osteoarthritis, left shoulder; K57.90 Diverticulosis of intestine, part unspecified, without perforation or abscess without bleeding; T50.2X5A Adverse effect of carbonic-anhydrase inhibitors, benzothiadiazides and other diuretics, initial encounter; Z82.49 Family history of ischemic heart disease and other diseases of the circulatory system; Z90.49 Acquired absence of other specified parts of digestive tract
CPT/HCPCS: 36415; 71010; 71275; 80048; 80061; 80076; 81001; 82553; 83690; 83735; 83880; 84443; 84484; 85025; 85379; 87086; 93005; 93017; 93350; 96360; J7030; Q9967; 99285-25